=== PATIENT | female | born 1955 | race Caucasian/White ===

== ENCOUNTER 2018-09-29 11:27 | Emergency (ER) | payer SELFPAY ==
[2018-09-29 11:56] VITALS: BP 131/81
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
[2018-09-29] MEDS ORDERED: IBUPROFEN 800 MG TABLET PO ONE (12:33)
--- NOTE | 2018-09-29 13:04 | RADIOLOGY REPORT (SQ) ---
EXAM DESCRIPTION: HAND RIGHT 3 VIEWS COMPLETED DATE/TIME: 09/29/2018 12:48 pm REASON FOR STUDY: pain for 13 days tore tendon 1979 COMPARISON: None. EXAM PARAMETERS: NUMBER OF VIEWS: Three views. TECHNIQUE: AP, lateral and oblique radiographic images acquired of the right hand. LIMITATIONS: None. FINDINGS: MINERALIZATION: Osteopenia. BONES: Old ulnar styloid fracture. No acute fracture or dislocation. No worrisome bone lesions. JOINTS: Advanced degenerative changes base of 1st metacarpal. SOFT TISSUES: No soft tissue swelling. No foreign body. OTHER: No other significant finding. IMPRESSION: NO RADIOGRAPHIC EVIDENCE OF ACUTE INJURY. TECHNICAL DOCUMENTATION: JOB ID: [id number] [employer]- All Rights Reserved Reading location - IP/workstation name: [email or web address]
== END 2018-09-29 13:50 | disposition home or self-care (01) ==
LOC: ER 11:27
DX: M25.541 Pain in joints of right hand (principal); Z98.890 Other specified postprocedural states; Z87.828 Personal history of other (healed) physical injury and trauma
CPT/HCPCS: 99283